=== PATIENT | female | born 1980 | race Two or more races ===

== ENCOUNTER → 2021-06-29 | Emergency (ER) | payer SELFPAY ==
[~2021-06-29] VITALS: Ht 167.6 cm; Wt 122.5 kg
[~2021-06-29] MED LIST: KETOROLAC TROMETH 30 MG/ML 1ML VIAL IV ONE; MORPHINE SULFATE 4 MG/ML SYR/VIAL IV ONE; ONDANSETRON HCL 4 MG/2 ML VIAL IV ONE; SODIUM CHLORIDE 0.9% 1,000 ML IV ONE
[2021-06-29 00:27] VITALS: BP 188/79
== END | disposition left against medical advice (07) ==
LOC: ER 00:22
DX: R10.9 Unspecified abdominal pain (principal); M54.9 Dorsalgia, unspecified; Z53.21 Procedure and treatment not carried out due to patient leaving prior to being seen by health care provider